=== PATIENT | male | born 1975 | race Caucasian/White ===

== ENCOUNTER → 2017-12-29 09:53 | Outpatient (CLI) | payer BC | END | disposition home or self-care (01) | LOC: D.RAD 09:53 | DX: R06.02 Shortness of breath (principal) ==

== ENCOUNTER 2019-07-16 14:37 | Emergency (ER) | payer MEDICARE ==
[~2019-07-16] VITALS: Ht 182.9 cm; Wt 86.4 kg
[2019-07-16 14:42] VITALS: Ht 182.9 cm; Wt 86.4 kg
[2019-07-16] MEDS ORDERED: CYCLOBENZAPRINE10 MG PO (14:44)
[2019-07-16] MEDS ORDERED: NEURONTIN 300300 MG PO (14:44)
[2019-07-16] MEDS ORDERED: PROTONIX40 MG PO (14:45)
[2019-07-16 15:16] LABS: BASOPHILS 0.4 % (0-2); EOSINOPHILS 1.8 % (0-7); HEMATOCRIT 46.4 % (42.0-54.0); HEMOGLOBIN 16.1 g/dL (13.5-17.5); IMMATURE GRANULOCYTES 0.3 % (0-5); LYMPHOCYTES 27.4 % (15-50); MCH 32.3 pg (26.0-34.0); MCHC 34.7 g/dL (31.0-37.0); MEAN PLATELET VOLUME 9.6 fL (7.4-10.4); MONOCYTES 7.3 % (2-11); NEUTROPHILS 62.8 % (40-80); PLATELET COUNT 220 10x3/uL (130-400); RBC 4.99 10x6/uL (4.20-6.10); RDW 12.4 % (11.5-14.5)
[2019-07-16 15:22] LABS: CALC OSMOLALITY 278 mosm/kg (275-300); CALCIUM 9.2 mg/dL (8.5-10.1); CARBON DIOXIDE 29.5 mmol/L (21.0-32.0); CHLORIDE - SERUM 103 mmol/L (98-107); CREATININE - SERUM 0.9 mg/dL (0.6-1.3); GLUCOSE 93 mg/dL (74-106); POTASSIUM - SERUM 4.2 mmol/L (3.5-5.1); SODIUM 139 mmol/L (136-145); UREA NITROGEN 14 mg/dL (7-18); eGFR NON AFRICAN AMERICAN > 90 mL/min (90-120)
[2019-07-16 15:29] LABS: ALBUMIN 3.7 g/dL (3.4-5.0); ALKALINE PHOSPHATASE 76 U/L (30-120); ALT (SGPT) 29 U/L (10-68); BILIRUBIN - TOTAL 0.34 mg/dL (0.2-1.3); PROTEIN - SERUM 7.4 g/dL (6.4-8.2)
[2019-07-16 15:32] LABS: APTT 28.2 SECONDS (22.8-39.4); INR 0.88 (0.85-1.17); PROTIME 11.9 SECONDS (11.6-15.0)
[2019-07-16 18:03] VITALS: BP 124/81
== END 2019-07-16 18:04 | disposition home or self-care (01) ==
LOC: D.ER 14:37
PROVIDERS: Emergency Medicine
DX: K92.2 Gastrointestinal hemorrhage, unspecified (principal); Z98.890 Other specified postprocedural states

== ENCOUNTER 2019-10-29 15:14 | Emergency (ER) | payer OTHER ==
[~2019-10-29] VITALS: Ht 182.9 cm; Wt 85.0 kg
[~2019-10-29 15:14] MED LIST: CYCLOBENZAPRINE10 MG PO; NEURONTIN 300300 MG PO; PROTONIX40 MG PO
[2019-10-29 15:28] VITALS: Ht 182.9 cm; Wt 85.0 kg
[2019-10-29] MEDS ORDERED: IBUPROFEN800 MG PO (15:31)
[2019-10-29 15:33] LABS: BASOPHILS 1.2 % (0-2); HEMATOCRIT 50.3 % (42.0-54.0); HEMOGLOBIN 17.1 g/dL (13.5-17.5); IMMATURE GRANULOCYTES 0.1 % (0-5); MCH 32.3 pg (26.0-34.0); MCV 95.1 fL (80.0-100.0); MONOCYTES 5.5 % (2-11); NEUTROPHILS 68.2 % (40-80); PLATELET COUNT 260 10x3/uL (130-400); RBC 5.29 10x6/uL (4.20-6.10); RDW 12.1 % (11.5-14.5); WBC 7.6 10x3/uL (4.8-10.8)
[2019-10-29 15:43] LABS: ANION GAP 13.8 mmol/L (8-16); CALCIUM 8.3 mg/dL (8.5-10.1); CARBON DIOXIDE 25.9 mmol/L (21.0-32.0); CREATININE - SERUM 1.3 mg/dL (0.6-1.3); POTASSIUM - SERUM 3.7 mmol/L (3.5-5.1)
[2019-10-29 15:51] LABS: ALBUMIN 4.1 g/dL (3.4-5.0); BILIRUBIN - TOTAL 0.25 mg/dL (0.2-1.3); MAGNESIUM - SERUM 1.9 mg/dL (1.8-2.4); PROTEIN - SERUM 7.3 g/dL (6.4-8.2)
[2019-10-29 16:24] LABS: UDS - AMPHET NEGATIVE QUAL (NEGATIVE); UDS - BARB NEGATIVE QUAL (NEGATIVE); UDS - BENZO NEGATIVE QUAL (NEGATIVE); UDS - COCAINE NEGATIVE QUAL (NEGATIVE); UDS - OPIATE NEGATIVE QUAL (NEGATIVE); UDS - PCP NEGATIVE QUAL (NEGATIVE); UDS - THC NEGATIVE QUAL (NEGATIVE)
[2019-10-29 16:31] LABS: BILIRUBIN NEGATIVE (NEGATIVE); GLUCOSE NEGATIVE (NEGATIVE); KETONE NEGATIVE (NEGATIVE); NITRITE NEGATIVE (NEGATIVE); UROBILINOGEN NORMAL (NORMAL)
--- NOTE | 2019-10-30 07:55 | NUR ---
ACCORDING TO THE SUICIDE ASSESSMENT THE PATIENT RATES HIGH FOR A SUICIDE RISK AND HE WILL REQUIRE A 1:1 OBSERVATION. PROVIDE A SUICIDE RISK FLYER AND A SAFETY PLAN.
[2019-10-30 08:13] VITALS: BP 138/86
== END 2019-10-30 08:26 ==
LOC: D.ER 15:14
PROVIDERS: Family Medicine
DX: R45.851 Suicidal ideations (principal); F10.129 Alcohol abuse with intoxication, unspecified; Y90.8 Blood alcohol level of 240 mg/100 ml or more